=== PATIENT | male | born 1945 | race Caucasian/White ===

== ENCOUNTER 2023-05-26 19:20 | Emergency (ER) | payer OTHER ==
[~2023-05-26] VITALS: Ht 170.2 cm; Wt 81.6 kg
--- NOTE | 2023-05-26 19:25 | NUR ---
Returns to ER department from home. Placed on site monitor, blood pressure machine and pulse oximeter. room 5 safety rails up
--- NOTE | 2023-05-26 19:30 | NUR ---
ER at bedside examining patient.
[2023-05-26 19:55] VITALS: BP_SYST 165
--- NOTE | 2023-05-26 20:30 | NUR ---
PT BIB . C/O RUQ pain. Pt states pain is under rib and has had an onset of 3 months. Pt states pain /. Pt states to have SOB since 3 months but has not followed up with primary care doctor. Pt denies trauma to area. Pt denies smoking. Pt denies chest pain. Pt denies N/V/D. Pt has hx of DM, HTN. Pt AAOX4. skin dry and intact. PERRLA. VSS. Pt speaking full complete sentences. Pt in bed with side rails up.
[2023-05-26 20:49] LABS: BASOPHILS # (AUTO) 0.1 K/uL (0.0-0.2); EOSINOPHILS # (AUTO) 0.3 K/uL (0.0-0.4); EOSINOPHILS % (AUTO) 2.9 % (0.0-4.0); HEMATOCRIT 38.6 % (36-54); HEMOGLOBIN 12.2 g/dL (14.0-18.0); LYMPHOCYTES # (AUTO) 4.1 K/uL (1.0-5.5); LYMPHOCYTES % (AUTO) 37.8 % (20.5-51.5); MEAN CORPUSCULAR HEMOGLOBIN 27 pg (27-31); MEAN CORPUSCULAR HGB CONC 32 % (32-36); MEAN CORPUSCULAR VOLUME 84 fL (79.0-98.0); NEUTROPHILS # (AUTO) 5.3 K/uL (1.8-7.7); NEUTROPHILS % (AUTO) 49.3 % (40.0-70.0); PLATELET COUNT (AUTO) 247 K/uL (130-430); RED BLOOD CELL COUNT(AUTO) 4.62 MIL/uL (4.2-6.2); RED CELL DISTRIBUTION WIDTH 16.1 % (9.0-15.0); WHITE BLOOD COUNT (AUTO) 10.8 K/uL (4.8-10.8)
[2023-05-26 21:08] LABS: ALANINE AMINOTRANSFERASE 35 U/L (12-78); ALBUMIN 3.5 g/dL (3.4-4.8); ANION GAP 10 (5-15); ASPARTATE AMINOTRANSFERASE 26 U/L (10-37); CALCIUM 8.8 mg/dL (8.4-11.0); CHLORIDE 101 mmol/L (98-107); CREATININE 1.03 mg/dL (0.55-1.30); GLUCOSE 126 mg/dL (74-106); TOTAL BILIRUBIN 0.3 mg/dL (0.0-1.0); UREA NITROGEN, BLOOD 23 mg/dL (8-21)
[2023-05-26] MEDS ORDERED: cefTRIAXone 1 GM in LIDOCAINE 1%, 20 ML MDV 2.1 ML IM ONE (23:45)
[2023-05-27] MEDS ORDERED: LEVO750T64 PO (00:09)
[2023-05-27] MEDS ORDERED: AUG875 PO (00:09)
[2023-05-27 00:35] VITALS: BP_SYST 165
--- NOTE | 2023-05-27 00:37 | NUR ---
Patient given written and verbal discharge instructions and verbalizes understanding. ER MD discussed with patient the results and treatment provided. Patient in stable condition. ID arm band removed. Rx of LEVOFLOXACIN AUMENTIN given. Patient educated on pain management and to follow up with PMD. Opportunity for questions provided and answered. Medication side effect fact sheet provided.
== END 2023-05-27 00:37 | disposition home or self-care (01) ==
LOC: SED 19:20
DX: J90 Pleural effusion, not elsewhere classified (principal); R07.89 Other chest pain; R50.9 Fever, unspecified; R10.11 Right upper quadrant pain; E11.9 Type 2 diabetes mellitus without complications; E78.5 Hyperlipidemia, unspecified; Z79.899 Other long term (current) drug therapy
CPT/HCPCS: 99284; 96374; 71250; 80053; 85025; 87040; 36415; 76376; 83605; J0696; J2001